=== PATIENT | male | born 1985 | race African-American/Black ===

== ENCOUNTER 2021-10-19 04:35 | Emergency (ER) | payer MEDICAID, SELFPAY ==
--- NOTE | ~2021-10-19 | XR_ITS ---
EXAMINATION: XR ANKLE, LEFT CLINICAL INFORMATION: Osteomyelitis medial malleolus, low suspicion COMPARISON: None TECHNIQUE: AP, lateral, and mortise views of the left ankle. FINDINGS: Osseous alignment is anatomic. No acute fracture is seen. No cortical erosion or periosteal reaction is seen to suggest sequelae of osteomyelitis. There is mild soft tissue swelling about the ankle. Degenerative changes are noted in the mid foot. XR/XR ankle LT 2V IMPRESSION: No radiographic findings to suggest osteomyelitis. Soft tissue swelling about the ankle.
[2021-10-19 04:43] VITALS: BP 158/88; PULSE 113; RESP 16; TEMP 36.5; O2SAT 98; BMI 26.9
--- NOTE | 2021-10-19 04:53 | ED.GENADULT ---
HPI - General Adult General Chief complaint: Extremity Problem Stated complaint: injury on ankle will not heal Time Seen by Provider: 10/19/21 04:41 Source: patient Mode of arrival: ambulatory Limitations: no limitations History of Present Illness HPI narrative: Patient comes to the emergency room complaining of an infected abrasion to the medial aspect of the left foot. Patient states that approximately 4-5 weeks ago he was walking in his living room jumping over toys, patient had an injury where he scraped his skin. Patient has been trying to manage at home but the abrasion is expanding. Patient denies fever chills. Patient is concerned that the injuries of getting better is getting worse. Patient states that he has been taking Tylenol and ibuprofen at home to help with the pain, patient describes it as a stinging sensation in the skin. Patient states that this is the 1st time that he is seeking medical treatment for this injury. Related Data Previous Rx's Medication Instructions Recorded cephalexin 750 mg capsule (Keflex) 750 mg PO BID #20 cap 10/19/21 doxycycline hyclate 100 mg capsule 100 mg PO BID #20 cap 10/19/21 Allergies Allergy/AdvReac Type Severity Reaction Status Date / Time Sulfa (Sulfonamide Allergy Unknown UNKNOWN Unverified 08/18/20 17:08 Antibiotics) [SULFA(SULFONAMIDE ANTIBIOTICS)] ENVIRONMENTAL Allergy Unknown TEARY Uncoded 08/18/20 17:08 EYES, RUNNY NOSE Review of Systems Review of Systems: Constitutional : No Weight loss, No Fever, No Chills, No Night Sweats, No Fatigue, No Malaise ENT/Mouth : No Hearing loss, No Ear Pain, No Nasal Congestion, No Sinus Pain, No Hoarseness, No sore throat, No Rhinorrhea, No Swallowing Difficulty Eyes: No Eye Pain, No Swelling, No Redness, No Foreign Body, No Discharge, No Vision Changes Cardiovascular : No Chest Pain, No SOB, No Dyspnea on Exertion, No Orthopnea, No Edema, No Palpitations Respiratory : No Cough, No Sputum, No Wheezing, No Smoke Exposure, No Dyspnea Gastrointestinal : No Nausea, No Vomiting, No Diarrhea, No Constipation, No abdominal Pain, No Hematochezia, No Melena Genitourinary : no irregular bleeding, No Dysuria, No Urinary Frequency, No Hematuria, No Urinary Incontinence, No Urgency, No Flank Pain, No Urinary Flow Changes, No Hesitancy Musculoskeletal : No joint pain, No Myalgias, No Joint Swelling Skin : Patient complaining of an abrasion that has gradually be spreading in the medial aspect of the malleolus of the left lower extremity Neuro : No Weakness, No Numbness, No Paresthesias, No Loss of Consciousness, No Dizziness, No Headache Psych : No Anxiety/Panic, No Depression, No SI/HI/AH/VH, No Social Issues, Heme/Lymph: No Bruising, No Bleeding,No Lymphadenopathy Endocrine : No Polyuria, No Polydipsia, No Temperature Intolerance [facility] Past Medical History Medical History Asthma Eczema Eczema Social History Social History Advance Directives: No Physical Exam Vital Signs: Vital Signs: Last Vital Signs Temp 97.7 F 10/19/21 04:43 Pulse 113 H 10/19/21 04:43 Resp 16 10/19/21 04:43 BP 158/88 H 10/19/21 04:43 Pulse Ox 98 10/19/21 04:43 Body Mass Index 26.9 Const: Other: Appearance: Alert. Oriented X3. No acute distress. Eyes: Pupils equal, round and reactive to light. ENT: Pharynx normal. Neck: Normal inspection. Neck supple. No lymph nodes noted. No crepitus CVS: Normal heart rate and rhythm. Pulses normal. Normal S1 and S2 Respiratory: No respiratory distress. Breath sounds normal. No Wheezing. No rales Abdomen: Soft and nontender. No rigidity. No distention. good BS x4 Skin: Skin warm and dry. Erythematous ulcer in the left medial malleolus, eczema lower extremities, chronic venous stasis bilaterally Extremities: No lower extremity edema. See skin above Neuro: Oriented X 3. No motor deficit. No sensory deficit. Moving all extermities. No slurred speech. Course Course Course Narrative: I discussed the labs with the patient. Patient will be started on oral antibiotics. Patient will likely benefit from a wound clinic consult. At this time, I do not think that the patient needs admission. Patient's wound has been chronic for several weeks now. Patient requested to have his prescriptions printed since he does not know how much the co-payment will be. Patient will go to different pharmacies to compare prices. Medical Decision Making Lab Data Result diagrams: 10/19/21 05:37 10/19/21 05:36 Labs: Lab Results 10/19/21 10/19/21 10/19/21 Range/Units 05:36 05:36 05:37 WBC 9.8 (4.8-10.8) X10*3/uL RBC 4.21 L (4.60-5.80) X10*6/uL Hgb 11.6 L (14.0-18.0) g/dl Hct 35.0 L (42.0-52.0) % MCV 83.1 (80.0-98.0) fL MCH 27.6 (27.0-33.0) pg MCHC 33.1 (31.0-36.0) g/dl RDW 15.0 (11.0-16.0) % Plt Count 501 H (160-400) X10*3/uL MPV 9.3 L (9.4-12.4) fL Immature Gran % (Auto) 0.2 (0.0-0.4) % Neut % (Auto) 53.5 (45-73) % Lymph % (Auto) 28.7 (20-40) % [place] % (Auto) 9.4 (2-11) % Eos % (Auto) 7.9 H (0-4) % Baso % (Auto) 0.3 (0-2) % Lymph # (Auto) 2.8 (1.2-4.9) X10*3/uL [place] # (Auto) 0.9 (0.1-1.2) X10*3/uL Eos # (Auto) 0.8 H (0.0-0.4) X10*3/uL Baso # (Auto) 0.0 (0.0-0.2) X10*3/uL Abs Immat Gran (auto) 0.02 (0.00-0.03) X10*3/uL Absolute Neuts (auto) 5.3 (2.0-8.3) x10*3/uL Absolute Nucleated RBC 0.000 (0.0-0.012) X10*3/uL Nucleated RBC % (auto) 0.0 (0.0-0.2) /100WBC Sodium 139 (135-145) mmol/L Potassium 4.3 (3.3-5.1) mmol/L Chloride 105 (96-108) mmol/L Carbon Dioxide 27 (22-29) mmol/L Anion Gap 11 L (12-20) BUN 13 (9-16) mg/dL Creatinine 0.91 (0.5-1.4) mg/dL Estim Creat Clear Calc 131.5 Estimated GFR > 60 Random Glucose 99 (60-115) mg/dL Lactic Acid 1.1 (0.5-2.0) mmol/L Calcium 9.6 (8.4-10.2) mg/dL Imaging Data Ankle x-ray: Radiologist's impression: Osseous alignment is anatomic. No acute fracture is seen. No cortical erosion or periosteal reaction is seen to suggest sequelae of osteomyelitis. There is mild soft tissue swelling about the ankle. Degenerative changes are noted in the mid foot.? XR/XR ankle LT 2V IMPRESSION: No radiographic findings to suggest osteomyelitis. Soft tissue swelling about the ankle. Discharge Plan Discharge Clinical Impression: Chronic cellulitis Patient Disposition: Home, Self-Care Instructions: Cellulitis (ED) Additional Instructions: Please call the wound clinic to schedule an appointment. Please follow-up with your primary care physician tomorrow. If you have any worsening or new symptoms, please return to the emergency room or call 911 Prescriptions: New doxycycline hyclate 100 mg capsule 100 mg PO BID Qty: 20 RF: 0 cephalexin [Keflex] 750 mg capsule 750 mg PO BID Qty: 20 RF: 0 Referrals: Magdalene Pena MD [Physician] - 1 day
[2021-10-19 05:43] LABS: MANUAL DIFF FLAG NO
[2021-10-19 05:44] LABS: Basophils Percent Auto 0.3 % (0-2); Eosinophils Absolute Auto 0.8 X10*3/uL (0.0-0.4); Eosinophils Percent Auto 7.9 % (0-4); Hemoglobin 11.6 g/dl (14.0-18.0); Imm Gran Abs Auto 0.02 X10*3/uL (0.00-0.03); Imm Gran Pct Auto 0.2 % (0.0-0.4); Lymphocytes Absolute Auto 2.8 X10*3/uL (1.2-4.9); Lymphocytes Percent Auto 28.7 % (20-40); Mean Corpuscular HGB Conc 33.1 g/dl (31.0-36.0); Mean Corpuscular Hemoglobin 27.6 pg (27.0-33.0); Mean Corpuscular Volume 83.1 fL (80.0-98.0); Mean Platelet Volume 9.3 fL (9.4-12.4); Monocytes Absolute Auto 0.9 X10*3/uL (0.1-1.2); Monocytes Percent Auto 9.4 % (2-11); Neutrophils Absolute Auto 5.3 x10*3/uL (2.0-8.3); Neutrophils Percent Auto 53.5 % (45-73); Platelet Count 501 X10*3/uL (160-400); Red Blood Count 4.21 X10*6/uL (4.60-5.80); White Blood Count 9.8 X10*3/uL (4.8-10.8)
[2021-10-19 05:55] LABS: Lactic Acid 1.1 mmol/L (0.5-2.0)
[2021-10-19 05:59] LABS: Anion Gap 11 (12-20); Blood Urea Nitrogen 13 mg/dL (9-16); Calcium 9.6 mg/dL (8.4-10.2); Carbon Dioxide 27 mmol/L (22-29); Chloride 105 mmol/L (96-108); Creatinine Clr Calc Pharmacy 131.5; Estimated Glomerular Filt Rate > 60; Glucose Random 99 mg/dL (60-115); Potassium 4.3 mmol/L (3.3-5.1); Sodium 139 mmol/L (135-145)
--- NOTE | 2021-10-19 06:08 | PC.NURSE ---
labs and cultures drawn, pt foot wrapped for comfort, pt instructed to keep his leg elevated. pt ambulated to bathroom.
[2021-10-19 06:27] VITALS: BP 158/98; PULSE 110; RESP 20; TEMP 36.6; O2SAT 98
[2021-10-19] MEDS: traMADoL HCL 50 MG TABLET PO (06:38)
[2021-10-19] MEDS: cephALEXin 500 MG CAPSULE PO (06:38)
== END 2021-10-19 06:39 | disposition home or self-care (01) ==
PROVIDERS: Emergency Provider Emergency Medicine
DX: L03.116 Cellulitis of left lower limb (principal); S90.512D Abrasion, left ankle, subsequent encounter; W22.8XXD Striking against or struck by other objects, subsequent encounter
CPT/HCPCS: 36415; 73600; 80048; 83605; 85025; 87040; 99283; 99284

== ENCOUNTER 2021-11-08 10:43 | Outpatient (RCR) | payer MEDICAID, OTHER, SELFPAY | END 2022-03-15 15:00 | disposition home or self-care (01) | LOC: HO.WCC 10:43 | PROVIDERS: Visit Provider Physician Assistant | DX: I87.312 Chronic venous hypertension (idiopathic) with ulcer of left lower extremity (principal); L97.822 Non-pressure chronic ulcer of other part of left lower leg with fat layer exposed; L97.322 Non-pressure chronic ulcer of left ankle with fat layer exposed; F17.210 Nicotine dependence, cigarettes, uncomplicated; R60.0 Localized edema | CPT/HCPCS: 11042; 11045; 99213; 99214; 99215 ==